=== PATIENT | female | born 1990 | race Caucasian/White ===

== ENCOUNTER 2018-11-27 19:56 | Emergency (ER) | payer BC, OTHER ==
--- NOTE | 2018-11-27 19:59 | PDOC ---
Rapid Medical Evaluation Time Seen by Provider: 11/27/18 19:57 Medical Evaluation: Allergies Allergy/AdvReac Type Severity Reaction Status Date / Time No Known Allergies Allergy Verified 03/21/14 21:26 11/27/18 19:58 I have performed a brief in-person evaluation of this patient. The patient presents with a chief complaint of: n/v/d w/ abd cramps and chills today. No sick contact, recent travel, unusual food or recent abx use Pertinent physical exam findings:well ingrid and stable w/ benign abd I have ordered the following:upreg The patient will proceed to the ED for further evaluation. Discharge Disposition - Diagnosis Nausea vomiting and diarrhea - Referrals - Patient Instructions - Post Discharge Activity
[2018-11-27 20:00] VITALS: BP 130/78; PULSE 96; TEMP 97.8; BMI 23.1
--- NOTE | 2018-11-27 20:41 | PDOC ---
History of Present Illness - General History Source: Patient Exam Limitations: No Limitations - History of Present Illness Initial Comments: 11/27/18 21:07 The patient is a 27 year old female, with no significant PMH, who presents to the emergency department with multiple episodes of nausea, vomiting, and diarrhea starting around noon after eating [employer]. Patient notes last episode around 6pm with some blood on stool. She reports minor cramps and abdominal muscle pain. The patient denies chest pain, shortness of breath, headache and dizziness. Denies fever and chills. Denies dysuria, frequency, urgency and hematuria. Allergies: NKA Social history: No reported <Ciara Tong - Last Filed: 11/27/18 21:07> <Ivette Hawthorne - Last Filed: 11/28/18 01:16> - General Chief Complaint: Nausea/Vomiting Stated Complaint: NAUSEA/VOMITING/ABDOMINAL PAIN Time Seen by Provider: 11/27/18 19:57 Past History <Ciara Tong - Last Filed: 11/27/18 21:07> - Past Medical History COPD: No - Immunization History Immunization Up to Date: Yes - Suicide/Smoking/Psychosocial Hx Smoking History: Never smoked Hx Alcohol Use: No Substance Use Type: None <Ivette Hawthorne - Last Filed: 11/28/18 01:16> - Past Medical History Allergies/Adverse Reactions: Allergies Allergy/AdvReac Type Severity Reaction Status Date / Time No Known Allergies Allergy Verified 11/27/18 19:58 Home Medications: Ambulatory Orders No Home Medications 0 dose .ROUTE UTDICT 03/21/14 Sulfamethoxazole/Trimethoprim [Bactrim *Ds*] 1 each PO BID #14 tablet 03/21/14 Review of Systems - Review of Systems Comments:: 11/27/18 21:07 GENERAL/CONSTITUTIONAL: No fever or chills. No weakness. HEAD, EYES, EARS, NOSE AND THROAT: No change in vision. No ear pain or discharge. No sore throat. CARDIOVASCULAR: No chest pain or shortness of breath. RESPIRATORY: No cough, wheezing, or hemoptysis. GASTROINTESTINAL: (+)Nausea (+)vomiting (+) diarrhea GENITOURINARY: No dysuria, frequency, or change in urination. MUSCULOSKELETAL: No joint or muscle swelling or pain. No neck or back pain. SKIN: No rash NEUROLOGIC: No headache, vertigo, loss of consciousness, or change in strength/ sensation. ENDOCRINE: No increased thirst. No abnormal weight change. HEMATOLOGIC/LYMPHATIC: No anemia, easy bleeding, or history of blood clots. ALLERGIC/IMMUNOLOGIC: No hives or skin allergy. <Ciara Tong - Last Filed: 11/27/18 21:07> *Physical Exam - Vital Signs Last Vital Signs Temp Pulse Resp BP Pulse Ox 97.8 F 96 H 18 130/78 98 11/27/18 19:58 11/27/18 19:58 11/27/18 19:58 11/27/18 19:58 11/27/18 19:58 - Physical Exam Comments: 11/27/18 21:07 GENERAL: Awake, alert, and fully oriented, in no acute distress HEAD: No signs of trauma EYES: PERRLA, EOMI, sclera anicteric, conjunctiva clear ENT: Auricles normal inspection, hearing grossly normal, nares patent. NECK: Normal ROM, supple, no lymphadenopathy, JVD, or masses LUNGS: Breath sounds equal, clear to auscultation bilaterally. No wheezes, and no crackles HEART: Regular rate and rhythm, normal S1 and S2, no murmurs, rubs or gallops ABDOMEN: (+)Gassy sounds. Soft, nontender, normoactive bowel sounds. No guarding, no rebound. No masses EXTREMITIES: Normal range of motion, no edema. No clubbing or cyanosis. No cords, erythema, or tenderness NEUROLOGICAL: Cranial nerves II through XII grossly intact. Normal speech. SKIN: Warm, Dry, normal turgor, no rashes or lesions noted. <Eric Tongmi - Last Filed: 11/27/18 21:07> - Vital Signs Last Vital Signs Temp Pulse Resp BP Pulse Ox 97.8 F 96 H 18 130/78 98 11/27/18 19:58 11/27/18 19:58 11/27/18 19:58 11/27/18 19:58 11/27/18 19:58 <Ivette Hawthorne - Last Filed: 11/28/18 01:16> Moderate Sedation - Procedure Monitoring Vital Signs: Procedure Monitoring Vital Signs Temperature 97.8 F 11/27/18 19:58 Pulse Rate 96 H 11/27/18 19:58 Respiratory Rate 18 11/27/18 19:58 Blood Pressure 130/78 11/27/18 19:58 O2 Sat by Pulse Oximetry (%) 98 11/27/18 19:58 <Ciara Tong - Last Filed: 11/27/18 21:07> - Procedure Monitoring Vital Signs: Procedure Monitoring Vital Signs Temperature 97.8 F 11/27/18 19:58 Pulse Rate 96 H 11/27/18 19:58 Respiratory Rate 18 11/27/18 19:58 Blood Pressure 130/78 11/27/18 19:58 O2 Sat by Pulse Oximetry (%) 98 11/27/18 19:58 <Ivette Hawthorne - Last Filed: 11/28/18 01:16> ED Treatment Course - ADDITIONAL ORDERS Additional order review: Laboratory Results 11/27/18 20:25 Urine HCG, Qual Negative - Medications Given in the ED: ED Medications Discontinued Medications Generic Name Dose Route Start Last Admin Trade Name Freq PRN Reason Stop Dose Admin Sodium Chloride 1,000 ml 11/27/18 20:45 11/27/18 20:58 Normal Saline - IV 11/27/18 20:46 1,000 ml ONCE ONE Administration <Ciara Tong - Last Filed: 11/27/18 21:07> - LABORATORY CBC & Chemistry Diagram: 11/27/18 20:55 11/27/18 20:55 <Ivette Hawthorne - Last Filed: 11/28/18 01:16> Medical Decision Making - Medical Decision Making 11/27/18 21:04 Pt ate [place] and has diarrhea and vomiting. Now improved. Pt has nothing else to vomit. Her 1 yo ate the food, and has 1 episode of diarrhea - normally the child is constipated. Pt has no fevers or chills or other complaints. Pt has gassy abdominal sounds. She has no rebound no guarding and she is nontender. She has no dysuria and no pain with BMs. She has minimal nausea at this time. She appears well. She is on control, and she is hcg negative. Basic labs will be sent and pt will be hydrated. 11/27/18 21:42 Labs normal; she is still tachycardic. We will treat with another L of fluid. <Ivette Hawthorne - Last Filed: 11/28/18 01:16> *DC/Admit/Observation/Transfer - Attestations Scribe Attestion: 11/27/18 21:07 Documentation prepared by Ciara Tong, acting as medical assistant instructor for Ivette Hawthorne MD. <Ciara Tong - Last Filed: 11/27/18 21:07> - Discharge Dispostion Decision to Admit order: No <Ivette Hawthorne - Last Filed: 11/28/18 01:16> Diagnosis at time of Disposition: Nausea vomiting and diarrhea, Food poisoning - Discharge Dispostion Disposition: HOME Condition at time of disposition: Stable - Patient Instructions Printed Discharge Instructions: How to Avoid Food Poisoning, DI for Food Poisoning - Post Discharge Activity Forms/Work/School Notes: Back to Work
[2018-11-27] MEDS ORDERED: SODIUM CHLORIDE 0.9% 500 ML INFUS.BAG IV ONE (20:45)
[2018-11-27 21:16] LABS: BASO % 0.2 % (0-2.0); EOS % 0.3 % (0-4.5); HEMATOCRIT 42.7 % (32.4-45.2); LYMPH % 5.8 % (8-40); MCH 33.2 pg (25.7-33.7); MCHC 35.2 g/dl (32.0-36.0); MEAN CELL VOLUME 94.2 fl (80-96); MEAN PLT VOLUME 9.3 fl (7.5-11.1); MONO % 3.2 % (3.8-10.2); NEUT % 90.5 % (42.8-82.8); PLATELET COUNT 263 K/MM3 (134-434); RBC 4.53 M/mm3 (3.60-5.2); RDW 12.2 % (11.6-15.6); WHITE BLOOD COUNT 10.1 K/mm3 (4.0-10.0)
[2018-11-27 21:39] LABS: ALK PHOS 84 U/L (45-117); ANION GAP 8 MMOL/L (8-16); BILIRUBIN,TOTAL 1.2 mg/dL (0.2-1); BLOOD UREA NITROGEN 14 mg/dL (7-18); CHLORIDE 105 mmol/L (98-107); CO2 26 mmol/L (21-32); CREATININE 0.9 mg/dL (0.55-1.3); GLUCOSE,RANDOM 80 mg/dL (74-106); POTASSIUM 3.7 mmol/L (3.5-5.1); SGOT/AST 17 U/L (15-37); SGPT/ALT 36 U/L (13-61); SODIUM 139 mmol/L (136-145); TOT PROT 7.7 g/dl (6.4-8.2)
[2018-11-27] MEDS ORDERED: LACTATED RINGERS SOLUTION 1000 ML INFUS.BAG IV ONE (21:45)
[2018-11-27] MEDS ORDERED: ACETAMINOPHEN 325 MG TABLET (FP) PO ONE (22:35)
[2018-11-27] MEDS ORDERED: ACETAMINOPHEN 325 MG TABLET (FP) ONE (22:40)
[2018-11-27] MEDS ORDERED: DEXTROSE 50%-WATER - 25 GM/50 ML VIAL IVPUSH ONE (22:57)
[2018-11-27] MEDS ORDERED: DEXTROSE 50%-WATER 25 GM/50 ML DISP.SYRIN ONE (23:12)
[2018-11-28] MEDS ORDERED: ONDANSETRON 4 MG/2 ML VIAL IVPB ONE (00:01)
[2018-11-28] MEDS ORDERED: ONDANSETRON 4 MG/2 ML VIAL ONE (00:34)
== END 2018-11-28 01:24 | disposition home or self-care (01) ==
LOC: JER 19:56
DX: T62.8X1A Toxic effect of other specified noxious substances eaten as food, accidental (unintentional), initial encounter (principal); R11.2 Nausea with vomiting, unspecified; Y92.038 Other place in apartment as the place of occurrence of the external cause
CPT/HCPCS: 36415; 80053; 84703; 85025; 99282-25

== ENCOUNTER 2020-10-04 09:25 | Emergency (ER) | payer OTHER ==
[2020-10-04 09:32] VITALS: BP 114/67; PULSE 62; TEMP 96.6; BMI 26.6
[2020-10-04] MEDS ORDERED: ONDANSETRON 4 MG/2 ML VIAL IVPUSH ONE (09:46)
[2020-10-04] MEDS ORDERED: SODIUM CHLORIDE 1,000 ML IV STA (09:46)
[2020-10-04] MEDS ORDERED: FAMOTIDINE 20 MG/50 ML IVPB 20 MG/50 ML MG IVPB ONE ×2 (09:46→09:52)
[2020-10-04] MEDS ORDERED: MAG HYDROX/AL HYDROX/SIMETH 30 ML UNIT-DOSE CUP PO ONE (09:47)
[2020-10-04] MEDS ORDERED: ACETAMINOPHEN 1000 MG/100 ML VIAL (NON FORMULARY) IVPB ONE (09:47)
[2020-10-04] MEDS ORDERED: ACETAMINOPHEN INJECTION 100 ML IVPB ONE (09:52)
[2020-10-04] MEDS ORDERED: ONDANSETRON 4 MG/2 ML VIAL ONE (10:03)
[2020-10-04 10:32] LABS: BASO % 0.3 % (0-2.0); EOS % 0.1 % (0-4.5); HEMATOCRIT 40.4 % (32.4-45.2); HEMOGLOBIN 13.7 GM/dL (10.7-15.3); LYMPH % 8.1 % (8-40); MCH 32.2 pg (25.7-33.7); MCHC 33.8 g/dl (32.0-36.0); MEAN CELL VOLUME 95.1 fl (80-96); MEAN PLT VOLUME 10.2 fl (7.5-11.1); MONO % 2.6 % (3.8-10.2); NEUT % 88.9 % (42.8-82.8); PLATELET COUNT 236 K/MM3 (134-434); RBC 4.25 M/mm3 (3.60-5.2); RDW 12.7 % (11.6-15.6); WHITE BLOOD COUNT 11.8 K/mm3 (4.0-10.0)
[2020-10-04 10:43] LABS: BLOOD UREA NITROGEN 13.5 mg/dL (7-18); CALCIUM 9.2 mg/dL (8.5-10.1)
[2020-10-04 10:47] LABS: CREATININE 1.1 mg/dL (0.55-1.3)
[2020-10-04 10:49] LABS: BILIRUBIN,TOTAL 0.9 mg/dL (0.2-1); TOT PROT 7.3 g/dl (6.4-8.2)
[2020-10-04 12:05] LABS: EPI CELLS 5 /uL (0-25.1); HYALINE CASTS 1 /uL (0-3.1); PH,URINE 5.5 (5.0-8.0); URINE APPEARANCE CLEAR; URINE BILIRUBIN NEGATIVE (NEGATIVE); URINE COLOR DK YELLOW; URINE GLUCOSE (UA) NEGATIVE (NEGATIVE); URINE KETONE NEGATIVE (NEGATIVE); URINE LEUK ESTERASE NEGATIVE (NEGATIVE); URINE NITRITE POSITIVE (NEGATIVE); URINE PROTEIN NEGATIVE (NEGATIVE); URINE RBC 49 /uL (0-23.9); URINE WBC 44 /uL (0-25.8)
[2020-10-04 12:18] LABS: URINE BACTERIA 35.3 /uL (0-1359); YEAST NO SEEN (NEGATIVE)
== END 2020-10-04 13:18 | disposition home or self-care (01) ==
LOC: JER 09:25
PROC: 3E0333Z Introduction of Anti-inflammatory into Peripheral Vein, Percutaneous Approach (ICD-10-PCS; principal; 2020-10-04)
PROC: 3E033GC Introduction of Other Therapeutic Substance into Peripheral Vein, Percutaneous Approach (ICD-10-PCS; 2020-10-04)
PROC: 3E033GC Introduction of Other Therapeutic Substance into Peripheral Vein, Percutaneous Approach (ICD-10-PCS; 2020-10-04)
PROC: 3E0337Z Introduction of Electrolytic and Water Balance Substance into Peripheral Vein, Percutaneous Approach (ICD-10-PCS; 2020-10-04)
DX: R10.13 Epigastric pain (principal)
CPT/HCPCS: 36415; 76705-TC; 80053; 81003; 83690; 84703; 85025; 87086; 99284-25; J0131

== ENCOUNTER 2020-10-06 05:40 | Emergency (ER) | payer OTHER ==
[2020-10-06 06:52] VITALS: BP 134/81; PULSE 88; TEMP 98.8; BMI 25.0
[2020-10-06] MEDS ORDERED: ONDANSETRON 4 MG/2 ML VIAL IVPUSH ONE (07:21)
[2020-10-06] MEDS ORDERED: SODIUM CHLORIDE 1,000 ML IV STA (07:21)
[2020-10-06] MEDS ORDERED: ACETAMINOPHEN 1000 MG/100 ML VIAL (NON FORMULARY) IVPB ONE (07:21)
[2020-10-06] MEDS ORDERED: PANTOPRAZOLE SODIUM 40 MG VIAL IVPUSH ONE (07:22)
[2020-10-06] MEDS ORDERED: ACETAMINOPHEN INJECTION 100 ML IVPB ONE (08:02)
[2020-10-06] MEDS ORDERED: PANTOPRAZOLE SODIUM 40 MG/100 ML BAG IVPB ONE (08:02)
[2020-10-06] MEDS ORDERED: ONDANSETRON 4 MG/2 ML VIAL ONE (08:03)
[2020-10-06 08:27] LABS: BASO % 0.2 % (0-2.0); HEMATOCRIT 40.9 % (32.4-45.2); HEMOGLOBIN 14.1 GM/dL (10.7-15.3); LYMPH % 7.4 % (8-40); MCH 32.4 pg (25.7-33.7); MCHC 34.5 g/dl (32.0-36.0); MEAN CELL VOLUME 93.9 fl (80-96); MEAN PLT VOLUME 10.2 fl (7.5-11.1); MONO % 4.7 % (3.8-10.2); NEUT % 87.7 % (42.8-82.8); PLATELET COUNT 261 K/MM3 (134-434); RBC 4.36 M/mm3 (3.60-5.2); RDW 12.6 % (11.6-15.6)
[2020-10-06 08:37] LABS: POTASSIUM 4.1 mmol/L (3.5-5.1)
[2020-10-06 08:39] LABS: ALBUMIN 4.3 g/dl (3.4-5.0); CALCIUM 9.4 mg/dL (8.5-10.1)
[2020-10-06 08:40] LABS: BLOOD UREA NITROGEN 16.5 mg/dL (7-18); MAGNESIUM 2.3 mg/dL (1.8-2.4)
[2020-10-06 08:43] LABS: CREATININE 1.3 mg/dL (0.55-1.3)
[2020-10-06 08:44] LABS: BILIRUBIN,TOTAL 1.1 mg/dL (0.2-1); TOT PROT 7.8 g/dl (6.4-8.2)
[2020-10-06 10:41] LABS: EPI CELLS 16 /uL (0-25.1); HYALINE CASTS 0 /uL (0-3.1); PH,URINE 5.5 (5.0-8.0); URINE APPEARANCE CLEAR; URINE BACTERIA 64 /uL (0-1359); URINE BILIRUBIN NEGATIVE (NEGATIVE); URINE COLOR YELLOW; URINE GLUCOSE (UA) NEGATIVE (NEGATIVE); URINE KETONE NEGATIVE (NEGATIVE); URINE LEUK ESTERASE NEGATIVE (NEGATIVE); URINE NITRITE NEGATIVE (NEGATIVE); URINE PROTEIN NEGATIVE (NEGATIVE); URINE RBC 11 /uL (0-23.9); URINE UROBILINOGEN 0.2 mg/dL (0.2-1.0); URINE WBC 14 /uL (0-25.8)
[2020-10-06 10:42] LABS: HCG,QUALITATIVE URINE Negative
== END 2020-10-06 13:42 | disposition home or self-care (01) ==
LOC: JER 05:40
PROC: 3E0333Z Introduction of Anti-inflammatory into Peripheral Vein, Percutaneous Approach (ICD-10-PCS; principal; 2020-10-06)
PROC: 3E033GC Introduction of Other Therapeutic Substance into Peripheral Vein, Percutaneous Approach (ICD-10-PCS; 2020-10-06)
PROC: 3E033GC Introduction of Other Therapeutic Substance into Peripheral Vein, Percutaneous Approach (ICD-10-PCS; 2020-10-06)
PROC: 3E0337Z Introduction of Electrolytic and Water Balance Substance into Peripheral Vein, Percutaneous Approach (ICD-10-PCS; 2020-10-06)
DX: N23 Unspecified renal colic (principal)
CPT/HCPCS: 36415; 74176-TC; 80053; 81003; 83690; 83735; 84703; 85025; 87086; 96361; 96374; 96375; 99284-25; J0131

== ENCOUNTER 2020-11-01 04:17 | Day surgery (SDC) | payer OTHER ==
[2020-10-31 13:35] VITALS: BMI 25.0
[2020-11-01] MEDS ORDERED: MIDAZOLAM HCL 2 MG/2 ML SINGLE DOSE VIAL ONE ×2 (14:40)
[2020-11-01] MEDS ORDERED: ceFAZolin SODIUM 1 GM VIAL IVPB ONE (14:53)
[2020-11-01] MEDS ORDERED: PROMETHAZINE HCL 25 MG/1 ML VIAL IVPUSH PRN (15:37)
[2020-11-01] MEDS ORDERED: oxyCODONE HCL 5 MG TABLET PO PRN ×2 (15:37→16:15)
[2020-11-01] MEDS ORDERED: ONDANSETRON 4 MG/2 ML VIAL IVPUSH PRN (15:37)
[2020-11-01] MEDS ORDERED: LACTATED RINGERS SOLUTION 1,000 ML IV SCH (15:45)
[2020-11-01] MEDS ORDERED: ACETAMINOPHEN 325 MG TABLET (FP) PO PRN (16:15)
[2020-11-01 18:22] VITALS: BP 119/68; PULSE 89; TEMP 98.4
== END 2020-11-01 18:40 | disposition home or self-care (01) ==
LOC: JASU-SURG 04:17
PROVIDERS: ATTEND Urology
PROC: 0TC68ZZ Extirpation of Matter from Right Ureter, Via Natural or Artificial Opening Endoscopic (ICD-10-PCS; principal; 2020-11-01 12:30)
PROC: 0T768DZ Dilation of Right Ureter with Intraluminal Device, Via Natural or Artificial Opening Endoscopic (ICD-10-PCS; 2020-11-01 12:30)
DX: N20.1 Calculus of ureter (principal)
CPT/HCPCS: 36415; 76000-TC-FY; 82360; 84703; 88300-TC; 94760

== ENCOUNTER 2022-08-12 15:27 | Emergency (ER) | payer OTHER ==
[2022-08-12 15:38] VITALS: BP 126/86; PULSE 70; RESP 20; TEMP 98.1; BMI 25.7
[2022-08-12] MEDS ORDERED: METHOCARBAMOL 500 MG TABLET PO ONE (16:51)
[2022-08-12] MEDS ORDERED: KETOROLAC TROMETHAMINE 30 MG/1 ML VIAL IM ONE (16:51)
[2022-08-12] MEDS ORDERED: KETOROLAC TROMETHAMINE 30 MG/1 ML VIAL ONE (16:57)
[2022-08-12] MEDS ORDERED: METHOCARBAMOL 500 MG TABLET ONE (16:57)
== END 2022-08-12 17:26 | disposition home or self-care (01) ==
LOC: JER 15:27 → JERFT 15:27
PROC: 3E023GC Introduction of Other Therapeutic Substance into Muscle, Percutaneous Approach (ICD-10-PCS; principal; 2022-08-12)
DX: M54.2 Cervicalgia (principal); M54.50 Low back pain, unspecified; M25.512 Pain in left shoulder; M79.652 Pain in left thigh; V49.40XA Driver injured in collision with unspecified motor vehicles in traffic accident, initial encounter
CPT/HCPCS: 99284-25